=== PATIENT | male | born 1965 | race Caucasian/White ===

== ENCOUNTER → 2018-04-29 10:51 | Outpatient (CLI) | payer OTHER, SELFPAY ==
[2018-04-29 11:14] LABS: Add Manual Diff / Slide Review NO; Basophils Absolute Auto 0 /uL (0-100); Basophils Percent Auto 0.5 % (0-2); Eosinophils Absolute Auto 100 /uL (0-450); Eosinophils Percent Auto 1.4 % (2-4); Hematocrit 42.7 % (41-53); Hemoglobin 14.6 g/dL (13.5-17.5); Lymphocytes Absolute Auto 2600 /uL (1100-4500); Lymphocytes Percent Auto 38.5 % (25-40); Mean Corpuscular HGB Conc 34.2 % (30-36); Mean Corpuscular Hemoglobin 30.9 PG (26-34); Mean Corpuscular Volume 90.1 fL (80-100); Monocytes Absolute Auto 600 /uL (0-900); Monocytes Percent Auto 8.9 % (3-14); Neutrophils Absolute Auto 3400 /uL (1500-7000); Neutrophils Percent Auto 50.7 % (50-75); Platelet Count 286 X10^3/uL (150-400); Red Blood Cell Count 4.74 X10^6/uL (4.5-5.9); Red Cell Distribution Width 12.6 % (11.6-14.8); White Blood Cell Count 6.7 X10^3/uL (4.5-11.0)
[2018-04-29 11:34] LABS: Alanine Aminotransferase 67 IU/L (21-72); Albumin 4.6 g/dL (3.5-5.0); Albumin Globulin Ratio 1.6 (1.0-2.8); Alkaline Phosphatase 63 U/L (38-126); Aspartate Aminotransferase 59 IU/L (17-59); BUN Creatinine Ratio 10.9 (6-22); Bilirubin Total 0.9 mg/dL (0.2-1.3); Blood Urea Nitrogen 12 mg/dL (9-20); Calcium 9.3 mg/dL (8.4-10.2); Carbon Dioxide 29 mmol/L (22-32); Chloride 103 mmol/L (98-107); Cholesterol 137 mg/dL (140-199); Estimated Glomerular Filt Rate > 60.0 mL/min (>60); Globulin 2.9 g/dL (1.7-4.1); Glucose 97 mg/dL (70-100); HDL Cholesterol 47 mg/dL (40-60); HEMOLYSIS < 15 (0-50); LDL Cholesterol Calculated 68 mg/dL (<100); Potassium 4.6 mmol/L (3.4-5.1); Sodium 140 mmol/L (137-145); Total Protein 7.5 g/dL (6.3-8.2); Triglycerides 110 mg/dL (35-150)
[2018-04-29 13:23] LABS: Creatinine Urine Random 218.2 mg/dL
[2018-04-29 13:27] LABS: Microalbumi Creatinin Ratio Ur 12.8 ug/mg CR (<30); Microalbumin Urine Random 2.8 mg/dL (0-1.6); Thyroid Stimulating Hormone 1.19 uIU/mL (0.47-4.68)
== END ==
PROVIDERS: PCP Family Medicine; Visit Provider Family Medicine
DX: E78.5 Hyperlipidemia, unspecified (principal); I10 Essential (primary) hypertension; R89.9 Unspecified abnormal finding in specimens from other organs, systems and tissues; Z12.5 Encounter for screening for malignant neoplasm of prostate
CPT/HCPCS: 36415; 80053; 80061; 82043; 82570; 84153; 84443; 85025

== ENCOUNTER → 2019-04-29 09:49 | Outpatient (CLI) | payer OTHER, SELFPAY ==
--- NOTE | 2019-04-29 10:39 | DI.RAD.S_ITS ---
PROCEDURE: XR ELBOW LT MIN 3V INDICATIONS: Olecranon bursitis TECHNIQUE: 3 views of the elbow were acquired. COMPARISON: None. FINDINGS: Bones: No fractures or dislocations. No suspicious bony lesions. Note is made of a calcific structure longitudinally oriented from the triceps tendon insertion proximally for 1.2 cm, indicating calcific tendinitis in that area. Soft tissue swelling more superficially is also present consistent with olecranon bursitis. No recent trauma suspected. No effusion found. Soft tissues: No elbow joint effusion. No suspicious soft tissue calcifications. IMPRESSION: Presence tendon distal insertion calcific tendinitis with overlying prominent soft tissue swelling indicating likelihood of olecranon bursitis. Dictated by: Alcides Oliveira M.D. on 04/29/2019 at 12:14 Approved by: Alcides Oliveira M.D. on 04/29/2019 at 12:15
[2019-04-29 12:03] LABS: Hemoglobin 16.3 g/dL (13.5-17.5); Mean Corpuscular HGB Conc 34.7 % (30-36); Mean Corpuscular Hemoglobin 31.4 PG (26-34); Mean Corpuscular Volume 90.3 fL (80-100); Platelet Count 333 X10^3/uL (150-400); Red Blood Cell Count 5.21 X10^6/uL (4.5-5.9); Red Cell Distribution Width 12.7 % (11.6-14.8); White Blood Cell Count 8.1 X10^3/uL (4.5-11.0)
[2019-04-29 12:14] LABS: Alanine Aminotransferase 104 IU/L (<50); Albumin 5.1 g/dL (3.5-5.0); Albumin Globulin Ratio 1.5 (1.0-2.8); Alkaline Phosphatase 83 U/L (38-126); Aspartate Aminotransferase 60 IU/L (17-59); BUN Creatinine Ratio 15.8 (6-22); Bilirubin Total 0.9 mg/dL (0.2-1.3); Blood Urea Nitrogen 19 mg/dL (9-20); Calcium 9.4 mg/dL (8.4-10.2); Carbon Dioxide 27 mmol/L (22-32); Chloride 102 mmol/L (98-107); Cholesterol 190 mg/dL (140-199); Estimated Glomerular Filt Rate > 60.0 mL/min (>60); Globulin 3.5 g/dL (1.7-4.1); Glucose 102 mg/dL (70-100); HDL Cholesterol 37 mg/dL (40-60); HEMOLYSIS 24 (0-50); LDL Cholesterol Calculated 127 mg/dL (<100); Potassium 4.2 mmol/L (3.4-5.1); Sodium 140 mmol/L (137-145); Total Protein 8.6 g/dL (6.3-8.2); Triglycerides 131 mg/dL (35-150)
[2019-04-29 15:17] LABS: Creatinine Urine Random 196.7 mg/dL
[2019-04-29 15:20] LABS: Microalbumi Creatinin Ratio Ur 52.3 ug/mg CR (<30); Microalbumin Urine Random 10.3 mg/dL (0-1.6)
== END ==
PROVIDERS: PCP Family Medicine; Referring Provider Family Medicine; Visit Provider Family Medicine
DX: E78.5 Hyperlipidemia, unspecified (principal); F32.9 Major depressive disorder, single episode, unspecified; I10 Essential (primary) hypertension; M70.22 Olecranon bursitis, left elbow
CPT/HCPCS: 36415; 73080; 80053; 80061; 82043; 82570; 85027

== ENCOUNTER → 2019-06-14 08:32 | Outpatient (CLI) | payer OTHER, SELFPAY ==
[2019-06-14 09:02] LABS: Alanine Aminotransferase 87 IU/L (<50); Albumin 4.6 g/dL (3.5-5.0); Albumin Globulin Ratio 1.4 (1.0-2.8); Alkaline Phosphatase 74 U/L (38-126); Amylase 80 U/L (30-110); Aspartate Aminotransferase 44 IU/L (17-59); Bilirubin Total 0.6 mg/dL (0.2-1.3); Bilirubin Unconjugated 0.4 mg/dL (0.0-1.1); Globulin 3.2 g/dL (1.7-4.1); HEMOLYSIS < 15 (0-50); Lipase 103 U/L (23-300); Total Protein 7.8 g/dL (6.3-8.2)
== END ==
PROVIDERS: PCP Family Medicine; Referring Provider Family Medicine; Visit Provider Family Medicine
DX: R10.9 Unspecified abdominal pain (principal)
CPT/HCPCS: 36415; 80076; 82150; 83690

== ENCOUNTER → 2019-08-16 09:19 | Outpatient (CLI) | payer OTHER, SELFPAY ==
[2019-08-16 10:18] LABS: Hematocrit 43.1 % (41-53); Hemoglobin 14.9 g/dL (13.5-17.5); Mean Corpuscular HGB Conc 34.5 % (30-36); Mean Corpuscular Hemoglobin 30.7 PG (26-34); Mean Corpuscular Volume 89.2 fL (80-100); Platelet Count 349 X10^3/uL (150-400); Red Blood Cell Count 4.83 X10^6/uL (4.5-5.9); Red Cell Distribution Width 12.5 % (11.6-14.8); White Blood Cell Count 6.7 X10^3/uL (4.5-11.0)
[2019-08-16 10:47] LABS: Alanine Aminotransferase 65 IU/L (<50); Albumin 4.5 g/dL (3.5-5.0); Albumin Globulin Ratio 1.5 (1.0-2.8); Alkaline Phosphatase 73 U/L (38-126); Aspartate Aminotransferase 40 IU/L (17-59); BUN Creatinine Ratio 15.4 (6-22); Bilirubin Total 0.6 mg/dL (0.2-1.3); Blood Urea Nitrogen 18 mg/dL (9-20); Calcium 9.5 mg/dL (8.4-10.2); Carbon Dioxide 27 mmol/L (22-32); Chloride 102 mmol/L (98-107); Cholesterol 162 mg/dL (140-199); Estimated Glomerular Filt Rate > 60.0 mL/min (>60); Globulin 3.1 g/dL (1.7-4.1); Glucose 111 mg/dL (70-100); HDL Cholesterol 33 mg/dL (40-60); HEMOLYSIS < 15 (0-50); LDL Cholesterol Calculated 83 mg/dL (<100); Potassium 4.6 mmol/L (3.4-5.1); Sodium 138 mmol/L (137-145); Total Protein 7.6 g/dL (6.3-8.2); Triglycerides 232 mg/dL (35-150); Uric Acid 7.5 mg/dL (3.5-8.5)
== END ==
PROVIDERS: PCP Family Medicine; Referring Provider Family Medicine; Visit Provider Family Medicine
DX: E78.5 Hyperlipidemia, unspecified (principal); F32.9 Major depressive disorder, single episode, unspecified; I10 Essential (primary) hypertension; M70.22 Olecranon bursitis, left elbow
CPT/HCPCS: 36415; 80053; 80061; 84550; 85027

== ENCOUNTER → 2019-12-26 11:16 | Outpatient (CLI) | payer OTHER, SELFPAY ==
--- NOTE | 2019-12-26 11:17 | DI.CT.S_ITS ---
PROCEDURE: CT ABDOMEN PELVIS WO/W CON INDICATIONS: Right flank pain. Report prior appendectomy 20 years ago. TECHNIQUE: After the administration of oral contrast, 5 mm thick sections acquired from the diaphragms to the iliac crests. After the administration of intravenous contrast, 5 mm thick sections acquired from the diaphragms to the symphysis. 5 mm thick coronal and sagittal reformats were acquired. For radiation dose reduction, the following was used: automated exposure control, adjustment of mA and/or kV according to patient size. COMPARISON: None. FINDINGS: Image quality: Excellent. ABDOMEN: Lung bases: Lung bases are clear. Heart size is normal. Solid organs: Liver is normal in size and enhancement but on precontrast imaging appears relatively radiolucent compared to the spleen in a pattern suggestive of generalized hepatic steatosis, moderate in severity.. Gallbladder appear normal. Biliary system is non-dilated. Pancreas enhances normally. Spleen is normal in size and enhancement. No adrenal nodules. Both kidneys are normal in size. No hydronephrosis or nephrolithiasis. Bowel and peritoneum: Stomach, small and large bowel loops are normal in caliber and wall thickness. No free fluid or air. Nodes and vessels: No retroperitoneal or mesenteric adenopathy by size criteria. Aorta and inferior vena are normal in caliber. Miscellaneous: No ventral hernias. PELVIS: Genitourinary: Bladder wall thickness is normal. Miscellaneous: No inguinal hernias or adenopathy. Bones: No suspicious bony lesions. No vertebral body compression fractures. IMPRESSION: A urinary tract stone is not found. No abnormality is seen along the right flank area in region of current clinical concern. No underlying infection or neoplasm is suspected. No operative complication from reported distant past appendectomy is suspected. Moderate fatty infiltration involving the liver appears present, a potential etiology of right-sided pain. Please correlate clinically for etiology of hepatic steatosis. Dictated by: Alcides Oliveira M.D. on 12/26/2019 at 13:07 Approved by: Alcides Oliveira M.D. on 12/26/2019 at 13:11
== END ==
PROVIDERS: PCP Family Medicine; Referring Provider Family Medicine; Visit Provider Family Medicine
DX: R10.10 Upper abdominal pain, unspecified (principal)
CPT/HCPCS: 74178

== ENCOUNTER → 2020-02-10 10:04 | Outpatient (CLI) | payer OTHER, SELFPAY ==
[2020-02-10 12:25] LABS: Add Manual Diff / Slide Review NO; Basophils Absolute Auto 0 /uL (0-100); Basophils Percent Auto 0.4 % (0-2); Eosinophils Absolute Auto 100 /uL (0-450); Hematocrit 43.9 % (41-53); Hemoglobin 14.8 g/dL (13.5-17.5); Lymphocytes Absolute Auto 2900 /uL (1100-4500); Lymphocytes Percent Auto 45.4 % (25-40); Mean Corpuscular HGB Conc 33.8 % (30-36); Mean Corpuscular Volume 88.7 fL (80-100); Monocytes Absolute Auto 300 /uL (0-900); Monocytes Percent Auto 5.3 % (3-14); Neutrophils Absolute Auto 3100 /uL (1500-7000); Neutrophils Percent Auto 47.9 % (50-75); Platelet Count 332 X10^3/uL (150-400); Red Blood Cell Count 4.95 X10^6/uL (4.5-5.9); Red Cell Distribution Width 13.1 % (11.6-14.8); White Blood Cell Count 6.4 X10^3/uL (4.5-11.0)
[2020-02-10 12:53] LABS: Alanine Aminotransferase 73 IU/L (<50); Albumin 4.4 g/dL (3.5-5.0); Albumin Globulin Ratio 1.6 (1.0-2.8); Alkaline Phosphatase 67 U/L (38-126); Aspartate Aminotransferase 35 IU/L (17-59); Bilirubin Total 0.6 mg/dL (0.2-1.3); Blood Urea Nitrogen 14 mg/dL (9-20); Calcium 9.3 mg/dL (8.4-10.2); Carbon Dioxide 25 mmol/L (22-32); Chloride 105 mmol/L (98-107); Cholesterol 145 mg/dL (140-199); Estimated Glomerular Filt Rate > 60.0 mL/min (>60); Globulin 2.7 g/dL (1.7-4.1); Glucose 99 mg/dL (70-100); HDL Cholesterol 39 mg/dL (40-60); HEMOLYSIS < 15 (0-50); LDL Cholesterol Calculated 73 mg/dL (<100); Potassium 4.8 mmol/L (3.4-5.1); Sodium 139 mmol/L (137-145); Total Protein 7.1 g/dL (6.3-8.2); Triglycerides 166 mg/dL (35-150)
[2020-02-10 13:11] LABS: Prostate Specific Antigen Scrn 1.12 ng/mL (0.1-4.0)
== END ==
PROVIDERS: PCP Family Medicine; Referring Provider Family Medicine; Visit Provider Family Medicine
DX: E78.5 Hyperlipidemia, unspecified (principal); I10 Essential (primary) hypertension; R10.10 Upper abdominal pain, unspecified; Z12.5 Encounter for screening for malignant neoplasm of prostate
CPT/HCPCS: 36415; 80053; 80061; 85025; G0103

== ENCOUNTER → 2020-03-23 15:12 | Outpatient (CLI) | payer OTHER, SELFPAY ==
[2020-03-23 15:48] LABS: Add Manual Diff / Slide Review NO; Basophils Absolute Auto 0 /uL (0-100); Basophils Percent Auto 0.4 % (0-2); Eosinophils Absolute Auto 0 /uL (0-450); Eosinophils Percent Auto 0.1 % (2-4); Hematocrit 45.4 % (41-53); Hemoglobin 15.5 g/dL (13.5-17.5); Lymphocytes Absolute Auto 2100 /uL (1100-4500); Lymphocytes Percent Auto 27.3 % (25-40); Mean Corpuscular HGB Conc 34.2 % (30-36); Mean Corpuscular Hemoglobin 30.3 PG (26-34); Mean Corpuscular Volume 88.8 fL (80-100); Monocytes Absolute Auto 400 /uL (0-900); Monocytes Percent Auto 5.7 % (3-14); Neutrophils Absolute Auto 5200 /uL (1500-7000); Neutrophils Percent Auto 66.5 % (50-75); Platelet Count 313 X10^3/uL (150-400); Red Blood Cell Count 5.11 X10^6/uL (4.5-5.9); Red Cell Distribution Width 13.1 % (11.6-14.8); White Blood Cell Count 7.8 X10^3/uL (4.5-11.0)
[2020-03-23 16:06] LABS: Alanine Aminotransferase 81 IU/L (<50); Albumin 4.6 g/dL (3.5-5.0); Albumin Globulin Ratio 1.4 (1.0-2.8); Alkaline Phosphatase 65 U/L (38-126); Aspartate Aminotransferase 45 IU/L (17-59); BUN Creatinine Ratio 13.6 (6-22); Bilirubin Total 0.5 mg/dL (0.2-1.3); Blood Urea Nitrogen 14 mg/dL (9-20); Calcium 9.5 mg/dL (8.4-10.2); Carbon Dioxide 31 mmol/L (22-32); Chloride 104 mmol/L (98-107); Estimated Glomerular Filt Rate > 60.0 mL/min (>60); Globulin 3.2 g/dL (1.7-4.1); Glucose 121 mg/dL (70-100); HEMOLYSIS < 15 (0-50); Potassium 4.4 mmol/L (3.4-5.1); Sodium 139 mmol/L (137-145); Total Protein 7.8 g/dL (6.3-8.2)
== END ==
PROVIDERS: Referring Provider Nurse Practitioner Family; Visit Provider Nurse Practitioner Family
DX: R42 Dizziness and giddiness (principal)
CPT/HCPCS: 36415; 80053; 83735; 85025

== ENCOUNTER 2020-03-24 09:33 | Emergency (ER) | payer OTHER, SELFPAY ==
--- NOTE | 2020-03-24 09:40 | ED.GENADULT ---
HPI - General Adult General Chief complaint: Dizziness Stated complaint: extreme nausea/dizziness x1 day Time Seen by Provider: 03/24/20 09:35 Source: patient Mode of arrival: Ambulatory Limitations: no limitations History of Present Illness HPI narrative: 55-year-old male who was seen in the walk-in clinic yesterday for dizziness. Had labs performed. According to the note had a relatively normal neurologic exam. His symptoms were vertiginous. He declined medications. Was told to take Dramamine at home for his symptoms however he reported that things seem to be improving last evening. He woke up this morning feeling worse than what he did yesterday. He states that he feels better when he is lying back with his eyes closed. Any movement causes the spinning sensation. He does have a left-sided headache. No vision changes. No chest pain or shortness of breath. Has not tried anything for symptoms prior to arrival. Related Data Previous Rx's Medication Instructions Recorded amlodipine 5 mg tablet 10 mg PO DAILY #180 tab 02/11/20 atorvastatin 10 mg tablet 10 mg PO HS #90 tab 02/11/20 lisinopril 20 mg tablet 40 mg PO BID #360 tab 02/11/20 meclizine 25 mg PO TID PRN #20 tab 03/24/20 ondansetron 4 mg PO Q6H PRN #14 tab 03/24/20 Allergies Allergy/AdvReac Type Severity Reaction Status Date / Time Xspselw-Dzs-Gtc Reductase AdvReac Mild muscle Verified 02/11/20 15:01 Inhibitor aches [BPSKVIM-AMH-HOL REDUCTASE INHIBITOR] Review of Systems Constitutional Constitutional: Denies chills, Denies fatigue, Denies fever(s), Reports headache(s) and Denies weakness Eyes Eyes: Denies change in vision ENT Ears, Nose, Mouth, and Throat: Reports vertigo, Reports dizziness, Reports headache(s), Denies sinus pain, Denies sinus pressure and Denies sore throat Cardiovascular Cardiovascular: Denies chest pain, Denies syncope and Denies dyspnea Respiratory Respiratory: Denies dyspnea Gastrointestinal Gastrointestinal: Denies abdominal pain, Reports nausea and Denies vomiting Genitourinary Genitourinary: Denies dysuria Genitourinary: Denies dysuria Musculoskeletal Musculoskeletal: Denies arthralgias, Denies myalgias and Denies tingling Integumentary/Breasts Skin/Breast: Denies rash Neurologic Neurologic: Denies abnormal speech, Reports vertigo, Reports dizziness, Denies syncope, Reports headache(s), Denies tingling and Denies weakness Psychiatric Psychiatric: Denies anxiety Endocrine Endocrine: Denies fatigue Hematologic/Lymphatic On Anticoagulants: No Allergic/Immunologic Allergic/Immunologic: Denies urticaria Patient History Medical History Alcohol abuse Depression (09/19/10) Dizziness Essential hypertension (02/24/16) Eustachian tube dysfunction Hyperlipidemia (09/19/10) Social History Smoking Status: Never smoker Smoking Status: Never smoker Exam Initial Vital Signs Initial Vital Signs: Vital Signs Temperature 97.7 F 03/24/20 09:42 Pulse Rate 67 03/24/20 09:42 Respiratory Rate 18 03/24/20 09:42 Blood Pressure 155/91 H 03/24/20 09:42 Pulse Oximetry 99 03/24/20 09:42 Const General: cooperative and comfortable Limitations: mental status not altered HENMT Head: normal to inspection and normocephalic Nose: external nose normal Resp Effort & Inspection: normal respiratory effort Auscultation: clear to auscultation bilaterally Cardio Rate: regular rate Rhythm: regular rhythm GI Inspection: non-distended Palpation: soft and No tender Skin Lesions: no lesions Rashes: no rashes Neuro General: patient alert, patient awake and patient oriented x3 Cognition: normal cognition Speech: speech normal Motor: muscle tone normal throughout Sensory Exam: no sensory deficits noted Other: Patient with a positive [place]-Hallpike to the right with nystagmus. We were also able to reproduce the symptoms to the left however not as intense as to the right. Extrem General: normal to inspection and capillary refill normal Psych Appearance: grossly normal and well kempt Scores GCS Zofia coma scale eye opening: Spontaneous Zofia coma scale verbal response: Orientated [place] coma scale motor response: Obey commands Zofia coma scale total score: 15 Course Orders Ordered: ED Orders 03/24/20 09:37 EKG-12 Lead Stat 03/24/20 09:41 Complete Blood Count AUTO DIFF Stat 03/24/20 09:42 Comprehensive Metabolic Panel Stat Ethanol (ETOH) Stat Lipase Stat 03/24/20 09:46 CT head/brain wo con Stat Discontinued Medications Diazepam (Diazepam 5 Mg Tablet) 5 mg PO NOW ONE Stop: 03/24/20 09:47 Last Admin: 03/24/20 09:59 Dose: 5 mg Documented by: Sodium Chloride (Normal Saline 0.9%) 1,000 mls @ 1,000 mls/hr IV BOLUS ONE Stop: 03/24/20 10:40 Last Admin: 03/24/20 09:59 Dose: 1,000 mls/hr Documented by: Thiamine HCl (Thiamine 200 Mg/2 Ml Vial) 100 mg IM NOW ONE Stop: 03/24/20 09:42 Thiamine HCl (Thiamine 200 Mg/2 Ml Vial) 100 mg IV NOW ONE Stop: 03/24/20 09:54 Last Admin: 03/24/20 09:58 Dose: 100 mg Documented by: Vital Signs Vital signs: Vital Signs - 8 hr 03/24/20 09:42 03/24/20 10:13 03/24/20 10:15 Temperature 97.7 F Pulse Rate 67 58 L 58 L Respiratory Rate 18 18 12 Blood Pressure 155/91 H 122/76 Pulse Oximetry 99 99 03/24/20 10:30 03/24/20 10:45 03/24/20 11:00 Temperature Pulse Rate 62 62 62 Respiratory Rate 15 12 16 Blood Pressure 118/72 117/68 119/72 Pulse Oximetry Medical Decision Making Lab Data Lab results reviewed: Yes I reviewed the patient's lab results. Result diagrams: 03/24/20 09:51 03/24/20 09:51 Labs: Lab Results 03/24/20 03/24/20 Range/Units 09:51 09:51 WBC 8.9 (4.5-11.0) X10^3/uL RBC 5.14 (4.5-5.9) X10^6/uL Hgb 15.6 (13.5-17.5) g/dL Hct 45.8 (41-53) % MCV 89.2 (80-100) fL MCH 30.4 (26-34) PG MCHC 34.0 (30-36) % RDW 13.0 (11.6-14.8) % Plt Count 330 (150-400) X10^3/uL Neut % (Auto) 61.6 (50-75) % Lymph % (Auto) 31.4 (25-40) % Martin % (Auto) 6.1 (3-14) % Eos % (Auto) 0.4 L (2-4) % Baso % (Auto) 0.5 (0-2) % Neut # (Auto) 5500 (8694-3447) /uL Lymph # (Auto) 2800 (4003-8905) /uL Martin # (Auto) 500 (0-900) /uL Eos # (Auto) 0 (0-450) /uL Baso # (Auto) 0 (0-100) /uL Sodium 138 (137-145) mmol/L Potassium 4.5 (3.4-5.1) mmol/L Chloride 104 (98-107) mmol/L Carbon Dioxide 27 (22-32) mmol/L BUN 14 (9-20) mg/dL Creatinine 0.99 (0.66-1.25) mg/dL Estimated GFR > 60.0 (>60) mL/min BUN/Creatinine Ratio 14.1 (6-22) Glucose 141 H (70-100) mg/dL Calcium 9.2 (8.4-10.2) mg/dL Total Bilirubin 0.6 (0.2-1.3) mg/dL AST 57 (17-59) IU/L ALT 86 H (<50) IU/L Alkaline Phosphatase 73 (38-126) U/L Total Protein 7.7 (6.3-8.2) g/dL Albumin 4.6 (3.5-5.0) g/dL Globulin 3.1 (1.7-4.1) g/dL Albumin/Globulin Ratio 1.5 (1.0-2.8) Lipase 83 (23-300) U/L Ethyl Alcohol < 10 ( - 10) mg/dL Imaging Data CT scan - head: Radiologist's Impression: [address] [id number] Scan ReportSigned Patient: Scar Patel LMR#: [id number]: 1965Acct:[id number]/Sex: 55 / MDate of Service: 03/24/20Loc: EDAccession Number: [id number] Procedure: CT head/brain wo con Ordering Provider: Ryan Knowles D.O. PROCEDURE: CT HEAD/BRAIN WO CON INDICATIONS: vertigo and left sided headache/fullness TECHNIQUE: Noncontrast 4.5 mm thick angled axial sections acquired from the foramen magnum to the vertex, with coronal and sagittal reformats. For radiation dose reduction, the following was used: automated exposure control, adjustment of mA and/or kV according to patient size. COMPARISON: [facility], , CT HEAD W/O CONTRAST, 04/25/2002, 9:36. FINDINGS: Image quality: Excellent. CSF spaces: Basal cisterns are patent. No extra-axial fluid collections. The ventricles are symmetric in size and shape. Brain: No intracranial bleeds or masses. There is cerebral volume loss for age, with resultant ventricular and sulcal prominence. There are periventricular and deep white matter chronic small vessel ischemic changes. There is intracranial internal carotid artery atherosclerosis. Skull and face: Calvarium and visualized facial bones appear intact, without suspicious lesions. Sinuses: Visualized sinuses and mastoids are clear. IMPRESSION: No acute intracranial disease process. Dictated by: Fawn Elam MD, PhD on 03/24/2020 at 9:09 Approved by: Fawn Elam MD, PhD on 03/24/2020 at 9:12 ECG Data Attestation: I personally reviewed and interpreted this ECG as follows: Prior ECG tracings: not available for review Interpretation: Sinus rhythm Ventricular rate is 63 Normal axis Normal QRS Normal QTC No ST T wave changes MDM Narrative Medical decision making narrative: Patient did have a positive [place]-Hallpike maneuver to the right. His head CT is unremarkable. EKG is unremarkable. Labs are unremarkable. He was given thiamine secondary to his history of alcohol abuse however I do have low suspicion for Wernicke after my complete exam. He has some improvement with Valium. I do suspect peripheral vertigo. Discussed this with him and his . Medicines were transmitted to the pharmacy of his choice. He was given return precautions and follow-up instructions. He expressed understanding and agreement. Discharge Plan Departure Patient Disposition: Home Clinical Impression: Vertigo Instructions: DI for Vertigo Activity Restrictions/Additional Instructions: Recommend that you use the [facility] many of her like we discussed. Medications were electronically transmitted to the pharmacy of your choice. I do recommend you contact your primary doctor for follow-up. Return emergency department for any new or worsening symptoms Prescriptions: New meclizine 25 mg tablet 25 mg PO TID PRN (Reason: motion sickness) Qty: 20 RF: 0 ondansetron 4 mg tablet,disintegrating 4 mg PO Q6H PRN (Reason: nausea and vomiting) Qty: 14 RF: 0 No Action amlodipine 5 mg tablet 10 mg PO DAILY Qty: 180 RF: 3 atorvastatin [Lipitor] 10 mg tablet 10 mg PO HS Qty: 90 RF: 3 lisinopril 20 mg tablet 40 mg PO BID Qty: 360 RF: 3
[2020-03-24 09:42] VITALS: BP 155/91; PULSE 67; RESP 18; TEMP 36.5; O2SAT 99; BMI 35.9
--- NOTE | 2020-03-24 09:57 | DI.CT.S_ITS ---
PROCEDURE: CT HEAD/BRAIN WO CON INDICATIONS: vertigo and left sided headache/fullness TECHNIQUE: Noncontrast 4.5 mm thick angled axial sections acquired from the foramen magnum to the vertex, with coronal and sagittal reformats. For radiation dose reduction, the following was used: automated exposure control, adjustment of mA and/or kV according to patient size. COMPARISON: [facility], , CT HEAD W/O CONTRAST, 04/25/2002, 9:36. FINDINGS: Image quality: Excellent. CSF spaces: Basal cisterns are patent. No extra-axial fluid collections. The ventricles are symmetric in size and shape. Brain: No intracranial bleeds or masses. There is cerebral volume loss for age, with resultant ventricular and sulcal prominence. There are periventricular and deep white matter chronic small vessel ischemic changes. There is intracranial internal carotid artery atherosclerosis. Skull and face: Calvarium and visualized facial bones appear intact, without suspicious lesions. Sinuses: Visualized sinuses and mastoids are clear. IMPRESSION: No acute intracranial disease process. Dictated by: Fawn Elam MD, PhD on 03/24/2020 at 9:09 Approved by: Fawn Elam MD, PhD on 03/24/2020 at 9:12
[2020-03-24] MEDS: THIAMINE 200 MG/2 ML VIAL 100 MG IV (09:58)
[2020-03-24 09:59] LABS: Add Manual Diff / Slide Review NO; Basophils Absolute Auto 0 /uL (0-100); Basophils Percent Auto 0.5 % (0-2); Eosinophils Absolute Auto 0 /uL (0-450); Eosinophils Percent Auto 0.4 % (2-4); Hematocrit 45.8 % (41-53); Hemoglobin 15.6 g/dL (13.5-17.5); Lymphocytes Absolute Auto 2800 /uL (1100-4500); Lymphocytes Percent Auto 31.4 % (25-40); Mean Corpuscular Hemoglobin 30.4 PG (26-34); Mean Corpuscular Volume 89.2 fL (80-100); Monocytes Absolute Auto 500 /uL (0-900); Monocytes Percent Auto 6.1 % (3-14); Neutrophils Absolute Auto 5500 /uL (1500-7000); Neutrophils Percent Auto 61.6 % (50-75); Platelet Count 330 X10^3/uL (150-400); Red Blood Cell Count 5.14 X10^6/uL (4.5-5.9); White Blood Cell Count 8.9 X10^3/uL (4.5-11.0)
[2020-03-24] MEDS: SODIUM CHLORIDE 0.9% 1,000 ML 1000 ML IV (09:59)
[2020-03-24] MEDS: diazePAM 5 MG TABLET PO (09:59)
[2020-03-24 10:13] VITALS: PULSE 58; RESP 18; O2SAT 99
[2020-03-24 10:15] VITALS: BP 122/76; PULSE 58; RESP 12
[2020-03-24 10:15] LABS: Alanine Aminotransferase 86 IU/L (<50); Albumin 4.6 g/dL (3.5-5.0); Albumin Globulin Ratio 1.5 (1.0-2.8); Alkaline Phosphatase 73 U/L (38-126); Aspartate Aminotransferase 57 IU/L (17-59); BUN Creatinine Ratio 14.1 (6-22); Bilirubin Total 0.6 mg/dL (0.2-1.3); Blood Urea Nitrogen 14 mg/dL (9-20); Calcium 9.2 mg/dL (8.4-10.2); Carbon Dioxide 27 mmol/L (22-32); Chloride 104 mmol/L (98-107); Estimated Glomerular Filt Rate > 60.0 mL/min (>60); Ethanol (ETOH) < 10 mg/dL; Globulin 3.1 g/dL (1.7-4.1); Glucose 141 mg/dL (70-100); HEMOLYSIS < 15 (0-50); Lipase 83 U/L (23-300); Potassium 4.5 mmol/L (3.4-5.1); Sodium 138 mmol/L (137-145); Total Protein 7.7 g/dL (6.3-8.2)
[2020-03-24 10:30] VITALS: BP 118/72; PULSE 62; RESP 15
[2020-03-24 10:45] VITALS: BP 117/68; PULSE 62; RESP 12
[2020-03-24 11:00] VITALS: BP 119/72; PULSE 62; RESP 16
== END 2020-03-24 11:19 | disposition home or self-care (01) ==
PROVIDERS: Emergency Provider Emergency Medicine
DX: R42 Dizziness and giddiness (principal); R51.9 Headache, unspecified; E78.5 Hyperlipidemia, unspecified; R11.0 Nausea
CPT/HCPCS: 36415; 70450; 80053; 80320; 83690; 85025; 93005; 93010; 96360; 99284

== ENCOUNTER → 2020-04-07 08:34 | Outpatient (CLI) | payer OTHER, SELFPAY ==
--- NOTE | 2020-04-07 08:35 | DI.MRI.S_ITS ---
PROCEDURE: MR BRAIN (IAC) WWO CON INDICATIONS: Vertigo and left-sided tinnitus TECHNIQUE: Noncontrast sagittal T1 spin echo, axial FLAIR, axial gradient echo, axial diffusion and ADC through the brain. Axial thin-slice 3D CISS, coronal TruFISP, axial T1 spin echo with fat saturation through the internal auditory canals. After the administration of contrast, thin slice axial and coronal T1 spin echo with fat saturation through the internal auditory canals, and axial T1 spin echo with fat saturation through the brain. COMPARISON: [facility], RG, CT HEAD W/O CONTRAST, 04/25/2002, 9:36. [facility], CT, CT HEAD/BRAIN WO CON, 03/24/2020, 9:50. FINDINGS: Image quality: Excellent. Cerebellopontine angles: No cerebellopontine angle masses. Inner ear structures appear normally formed. No suspicious enhancement in the internal auditory canal or along the course of the 7th cranial nerve. CSF spaces: Ventricles are normal in size and shape. No extra-axial fluid collections. Basal cisterns are patent. Brain: No intracranial bleeds or mass effects. [place]-white matter interface is intact. No abnormal intracranial enhancement. Diffusion weighted images demonstrate no acute ischemic insults. Brainstem appears normal. Normal intravascular flow voids are present. Skull and face: Calvarial marrow signal is normal. Orbits appear normal. Sinuses: Sinuses and mastoids are clear. IMPRESSION: No significant abnormality is seen. Specifically, no masses or abnormal enhancement are seen within the cerebellopontine angle cisterns or within the internal auditory canals. Dictated by: Peter Nguyen M.D. on 04/07/2020 at 8:30 Approved by: Peter Nguyen M.D. on 04/07/2020 at 8:44
== END ==
PROVIDERS: PCP Family Medicine; Referring Provider Family Medicine; Visit Provider Family Medicine
DX: H93.12 Tinnitus, left ear (principal); R42 Dizziness and giddiness
CPT/HCPCS: 70553

== ENCOUNTER → 2020-06-15 09:42 | Outpatient (CLI) | payer OTHER, SELFPAY ==
[2020-06-15 10:23] LABS: COVID19 -Nasal RAPID Negative (Negative)
== END ==
PROVIDERS: PCP Family Medicine; Visit Provider Student in an Organized Health Care Education/Training Program
DX: Z20.822 Contact with and (suspected) exposure to COVID-19 (principal)
CPT/HCPCS: 87635

== ENCOUNTER → 2022-05-15 10:19 | Outpatient (CLI) | payer BC, SELFPAY ==
[2022-05-15 10:39] LABS: Add Manual Diff / Slide Review NO; Basophils Absolute Auto 0 /uL (0-100); Basophils Percent Auto 0.8 % (0-2); Eosinophils Absolute Auto 100 /uL (0-450); Eosinophils Percent Auto 1.3 % (2-4); Hematocrit 46.4 % (41-53); Hemoglobin 15.7 g/dL (13.5-17.5); Lymphocytes Absolute Auto 3000 /uL (1100-4500); Lymphocytes Percent Auto 55.1 % (25-40); Mean Corpuscular HGB Conc 33.9 % (30-36); Mean Corpuscular Hemoglobin 30.8 PG (26-34); Mean Corpuscular Volume 90.8 fL (80-100); Monocytes Absolute Auto 300 /uL (0-900); Monocytes Percent Auto 5.7 % (3-14); Neutrophils Absolute Auto 2000 /uL (1500-7000); Neutrophils Percent Auto 37.1 % (50-75); Platelet Count 288 X10^3/uL (150-400); Red Blood Cell Count 5.11 X10^6/uL (4.5-5.9); Red Cell Distribution Width 12.9 % (11.6-14.8); White Blood Cell Count 5.4 X10^3/uL (4.5-11.0)
[2022-05-15 11:07] LABS: HEMOLYSIS < 15 (0-50)
[2022-05-15 11:15] LABS: Alanine Aminotransferase 76 IU/L (<50); Albumin 4.4 g/dL (3.5-5.0); Albumin Globulin Ratio 1.3 (1.0-2.8); Alkaline Phosphatase 69 U/L (38-126); Aspartate Aminotransferase 48 IU/L (17-59); BUN Creatinine Ratio 11.6 (6-22); Bilirubin Total 0.7 mg/dL (0.2-1.3); Blood Urea Nitrogen 13 mg/dL (9-20); Calcium 8.8 mg/dL (8.4-10.2); Carbon Dioxide 26 mmol/L (22-32); Chloride 104 mmol/L (98-107); Cholesterol 168 mg/dL (140-199); Estimated Glomerular Filt Rate > 60 mL/min (>60); Globulin 3.4 g/dL (1.7-4.1); Glucose 112 mg/dL (70-100); HDL Cholesterol 40 mg/dL (40-60); LDL Cholesterol Calculated 95 mg/dL (<100); Potassium 4.5 mmol/L (3.4-5.1); Sodium 137 mmol/L (137-145); Total Protein 7.8 g/dL (6.3-8.2); Triglycerides 163 mg/dL (35-150)
[2022-05-15 11:47] LABS: TSH w/ Reflex to FT4 1.24 uIU/mL (0.47-4.68)
[2022-05-19 11:10] LABS: Prostate Specific Antigen Scrn 2.12 ng/mL (0.1-4.0)
== END ==
PROVIDERS: PCP Family Medicine; Referring Provider Family Medicine; Visit Provider Family Medicine
DX: E78.5 Hyperlipidemia, unspecified (principal); F32.9 Major depressive disorder, single episode, unspecified; I10 Essential (primary) hypertension; R73.9 Hyperglycemia, unspecified; R79.89 Other specified abnormal findings of blood chemistry; Z12.5 Encounter for screening for malignant neoplasm of prostate
CPT/HCPCS: 36415; 80053; 80061; 83036; 84443; 85025; G0103

== ENCOUNTER 2022-07-25 08:35 | Day surgery (SDC) | payer BC, SELFPAY ==
[2022-07-25 08:52] VITALS: BMI 35.9
[2022-07-25 09:13] VITALS: BP 125/81; PULSE 58; RESP 19; TEMP 36.7; O2SAT 98
--- NOTE | 2022-07-25 09:32 | PM.HP.1 ---
History of Present Illness History of Present Illness Date Patient Seen: 07/25/22 Time Patient Seen: 09:32 Chief complaint: SDC Narrative: 57-year-old man here for colorectal screening by colonoscopy. Last colonoscopy 11-12 years ago normal. No family history of colon cancer. No blood per rectum or unintentional weight loss. Endorses occasional altered bowel function and rectal pruritus. [facility] Medical History Alcohol abuse Depression Dizziness Essential hypertension (02/24/16) Eustachian tube dysfunction Hyperlipidemia (09/19/10) Left-sided tinnitus Social History household members: spouse Smoking Status: Never smoker alcohol intake: current Meds Home Medications and Allergies Home Medications Medication Instructions Recorded Confirmed Type mirtazapine 15 mg tablet 30 mg PO BEDTIME #180 tabs 12/08/21 07/25/22 Rx niacin 500 mg tablet 1,000 mg PO DAILY 01/13/22 07/25/22 History atorvastatin 10 mg tablet (Lipitor) 10 mg PO HS #90 tabs 06/08/22 07/25/22 Rx lisinopril 20 mg tablet 40 mg PO BID #360 tabs 06/08/22 07/25/22 Rx amlodipine 5 mg tablet 20 mg PO DAILY 07/25/22 07/25/22 History bupropion HCl 150 mg tablet,12 hr 150 mg PO 2XD 07/25/22 07/25/22 History sustained-release Allergies Allergy/AdvReac Type Severity Reaction Status Date / Time No Known Drug Allergies Allergy Verified 07/25/22 08:47 Exam Vital Signs (past 8 hours): - 07/25/22 09:13 Temperature 98.1 F Pulse Rate 58 L Respiratory Rate 19 Blood Pressure 125/81 Pulse Oximetry 98 Oxygen Delivery Method Room Air Oxygen Delivery Method Room Air Narrative Exam Narrative: General adult man alert oriented no acute distress Abdomen soft nontender nondistended Assessment & Plan Assessment & Plan narrative: The patient requires colorectal screening and colonoscopy is recommended. Technical details were discussed. Risks, benefits, alternatives explained. Risks including but not limited to myocardial infarction, aspiration, bleeding, pain, missed lesion, incomplete examination, need for further radiographic studies, colonic perforation, and need for major abdominal surgery were discussed. All questions were answered to their satisfaction, and they are in agreement with this plan.
[2022-07-25 09:59] VITALS: BP 116/85; PULSE 64; RESP 18; TEMP 36.1; O2SAT 96
--- NOTE | 2022-07-25 10:03 | PM.OP.COLON ---
Operative Date/Time/Diagnoses Date of procedure: 07/25/22 Time of procedure: 10:03 Pre-op diagnosis: Colorectal screening Post-op diagnosis: same Procedure & Clinicians Study performed: Colonoscopy Same procedure as scheduled: Yes Indications: 57-year-old man here for colorectal screening by colonoscopy Surgeon: Pepe Luciano Procedure Notes Procedure in detail: The history and physical was performed/updated and the patient is ASA class is 2. The procedure was discussed in detail with the patient. Potential risks complications including infection, bleeding, missed diagnosis, perforation, need for surgery, and were explained. Their questions were answered and informed consent was obtained. Patient was brought to the procedure room and placed standard monitoring equipment. The patient's vital signs were monitored continuously throughout the entire procedure. Prior to starting time-out was performed. The patient was placed in the left lateral recumbent position. Procedural sedation was administered by anesthesia. Examination began with a thorough inspection of the perianal area there was no evidence of fissures, fistulae, external hemorrhoids or cutaneous malignancy. The colonoscopy scope was then placed into the anal canal and was advanced to the cecum, which was identified by the ileocecal valve, and the confluence of the taenia. The scope was then slowly withdrawn examining colon thoroughly in all directions, irrigating it of any residual stool. No masses polyps or inflammation. Grade 2 internal hemorrhoids on retroflexion within the rectum. The patient tolerated the procedure well. They will be discharged once criteria are met. The prep was of good/excellent quality. The withdrawl time was 7 minutes. Specimen(s): none sent Impression: Normal colonoscopy Post-procedure Recommendations: Colonoscopy in 10 years and High fiber diet Disposition: same day surgery
[2022-07-25 10:05] VITALS: BP 115/86; PULSE 64; RESP 14; O2SAT 96
[2022-07-25 10:10] VITALS: BP 119/87; PULSE 60; RESP 18; O2SAT 97
[2022-07-25 10:15] VITALS: BP 119/87; PULSE 59; RESP 16; O2SAT 97
[2022-07-25] MEDS: LACTATED RINGERS 1,000 ML 200 ML IV (10:28)
== END 2022-07-25 10:30 | disposition home or self-care (01) ==
PROVIDERS: PCP Family Medicine; Referring Provider Surgery; Visit Provider Surgery
PROC: 0DJD8ZZ Inspection of Lower Intestinal Tract, Via Natural or Artificial Opening Endoscopic (ICD-10-PCS; CPT 45378; principal; 2022-07-25 09:30)
DX: Z12.11 Encounter for screening for malignant neoplasm of colon (principal); K64.1 Second degree hemorrhoids
CPT/HCPCS: 45378; J2704

== ENCOUNTER → 2023-07-12 13:32 | Outpatient (CLI) | payer BC, SELFPAY ==
[2023-07-12 14:15] LABS: Add Manual Diff / Slide Review NO; Basophils Absolute Auto 0 /uL (0-100); Basophils Percent Auto 0.3 % (0-2); Eosinophils Absolute Auto 0 /uL (0-450); Eosinophils Percent Auto 0.2 % (2-4); Hematocrit 44.1 % (41-53); Hemoglobin 15.7 g/dL (13.5-17.5); Lymphocytes Absolute Auto 2000 /uL (1100-4500); Lymphocytes Percent Auto 19.9 % (25-40); Mean Corpuscular HGB Conc 35.7 % (30-36); Mean Corpuscular Volume 89.7 fL (80-100); Monocytes Absolute Auto 500 /uL (0-900); Monocytes Percent Auto 4.9 % (3-14); Neutrophils Absolute Auto 7300 /uL (1500-7000); Neutrophils Percent Auto 74.7 % (50-75); Platelet Count 351 X10^3/uL (150-400); Red Blood Cell Count 4.91 X10^6/uL (4.5-5.9); Red Cell Distribution Width 12.5 % (11.6-14.8); White Blood Cell Count 9.8 X10^3/uL (4.5-11.0)
[2023-07-12 14:28] LABS: Alanine Aminotransferase 54 IU/L (<50); Albumin 4.7 g/dL (3.5-5.0); Albumin Globulin Ratio 1.5 (1.0-2.8); Alkaline Phosphatase 68 U/L (38-126); Aspartate Aminotransferase 35 IU/L (17-59); BUN Creatinine Ratio 14.8 (6-22); Blood Urea Nitrogen 16 mg/dL (9-20); Carbon Dioxide 24 mmol/L (22-32); Chloride 107 mmol/L (98-107); Cholesterol 171 mg/dL (140-199); Estimated Glomerular Filt Rate > 60 mL/min (>60); Globulin 3.1 g/dL (1.7-4.1); Glucose 118 mg/dL (70-100); HDL Cholesterol 40 mg/dL (40-60); HEMOLYSIS 18 (0-50); LDL Cholesterol Calculated 90 mg/dL (<100); Potassium 4.4 mmol/L (3.4-5.1); Sodium 139 mmol/L (137-145); Total Protein 7.8 g/dL (6.3-8.2); Triglycerides 207 mg/dL (35-150)
[2023-07-12 14:56] LABS: TSH w/ Reflex to FT4 0.87 uIU/mL (0.47-4.68)
[2023-07-12 14:57] LABS: Prostate Specific Antigen Scrn 1.74 ng/mL (0.1-4.0)
== END ==
LOC: LAB 13:34
PROVIDERS: PCP Family Medicine; Referring Provider Family Medicine; Visit Provider Family Medicine
DX: Z00.00 Encounter for general adult medical examination without abnormal findings (principal); Z12.5 Encounter for screening for malignant neoplasm of prostate; R73.9 Hyperglycemia, unspecified; I10 Essential (primary) hypertension; E78.5 Hyperlipidemia, unspecified; R79.89 Other specified abnormal findings of blood chemistry; M70.22 Olecranon bursitis, left elbow
CPT/HCPCS: 36415; 80053; 80061; 82172; 83695; 84443; 85025; G0103

== ENCOUNTER → 2024-08-11 10:54 | Outpatient (CLI) | payer BC, SELFPAY ==
[2024-08-11 12:09] LABS: Add Manual Diff / Slide Review NO; Basophils Absolute Auto 0 /uL (0-100); Basophils Percent Auto 0.4 % (0-2); Eosinophils Absolute Auto 100 /uL (0-450); Hematocrit 46.3 % (41-53); Hemoglobin 16.3 g/dL (13.5-17.5); Lymphocytes Absolute Auto 2500 /uL (1100-4500); Lymphocytes Percent Auto 42.1 % (25-40); Mean Corpuscular HGB Conc 35.2 % (30-36); Mean Corpuscular Hemoglobin 31.9 PG (26-34); Mean Corpuscular Volume 90.7 fL (80-100); Monocytes Absolute Auto 500 /uL (0-900); Monocytes Percent Auto 8.4 % (3-14); Neutrophils Absolute Auto 2800 /uL (1500-7000); Neutrophils Percent Auto 48.1 % (50-75); Platelet Count 296 X10^3/uL (150-400); Red Blood Cell Count 5.11 X10^6/uL (4.5-5.9); Red Cell Distribution Width 12.6 % (11.6-14.8); White Blood Cell Count 5.9 X10^3/uL (4.5-11.0)
[2024-08-11 12:14] LABS: Creatinine Urine Random 149.41 mg/dL
[2024-08-11 12:17] LABS: Alanine Aminotransferase 97 IU/L (<50); Albumin Globulin Ratio 1.6 (1.0-2.8); Alkaline Phosphatase 55 U/L (38-126); Aspartate Aminotransferase 54 IU/L (17-59); BUN Creatinine Ratio 9.5 (6-22); Bilirubin Total 1.2 mg/dL (0.2-1.3); Blood Urea Nitrogen 10 mg/dL (9-20); Calcium 9.5 mg/dL (8.4-10.2); Carbon Dioxide 27 mmol/L (22-32); Chloride 103 mmol/L (98-107); Cholesterol 163 mg/dL (140-199); Estimated Glomerular Filt Rate > 60 mL/min (>60); Globulin 3.1 g/dL (1.7-4.1); Glucose 104 mg/dL (70-99); HDL Cholesterol 47 mg/dL (40-60); HEMOLYSIS < 15 (0-50); LDL Cholesterol Calculated 90 mg/dL (<100); Potassium 4.6 mmol/L (3.4-5.1); Sodium 139 mmol/L (137-145); Total Protein 8.1 g/dL (6.3-8.2); Triglycerides 131 mg/dL (35-150)
[2024-08-11 12:20] LABS: Microalbumin Urine Random 3.5 mg/dL (0-1.6)
[2024-08-11 12:47] LABS: Prostate Specific Antigen Scrn 2.58 ng/mL (0.1-4.0)
[2024-08-11 12:49] LABS: TSH w/ Reflex to FT4 1.23 uIU/mL (0.47-4.68)
== END ==
PROVIDERS: PCP Family Medicine; Referring Provider Family Medicine; Visit Provider Family Medicine
DX: Z12.5 Encounter for screening for malignant neoplasm of prostate (principal); R73.9 Hyperglycemia, unspecified; E78.5 Hyperlipidemia, unspecified; I10 Essential (primary) hypertension; R79.89 Other specified abnormal findings of blood chemistry
CPT/HCPCS: 36415; 80053; 80061; 82043; 82570; 84443; 85025; G0103

== ENCOUNTER → 2024-10-13 11:23 | Outpatient (CLI) | payer BC, SELFPAY ==
--- NOTE | 2024-10-13 11:26 | DI.RAD.S_ITS ---
PROCEDURE: XR WRIST LT MIN 3V INDICATIONS: Left wrist pain TECHNIQUE: 3 views of the wrist were acquired. COMPARISON: None. FINDINGS: Bones: No definite acute fracture. No dislocations. No suspicious bony lesions. Soft tissues: No suspicious soft tissue calcifications. IMPRESSION: Left wrist without acute fracture or dislocation. If there are persistent symptoms or clinical suspicion for pathology, then repeat radiographs or advanced imaging (CT or MRI) may be considered for further evaluation. Dictated by: Ted Mendez M.D. on 10/13/2024 at 21:27 Approved by: Ted Mendez M.D. on 10/13/2024 at 21:28
== END ==
LOC: RAD 11:25
PROVIDERS: PCP Family Medicine; Referring Provider Nurse Practitioner Family; Visit Provider Nurse Practitioner Family
DX: M25.532 Pain in left wrist (principal)
CPT/HCPCS: 73110

== ENCOUNTER → 2024-11-19 12:12 | Outpatient (CLI) | payer BC, SELFPAY ==
[2024-11-19 12:59] LABS: Alanine Aminotransferase 78 IU/L (<50); Albumin 4.8 g/dL (3.5-5.0); Albumin Globulin Ratio 1.7 (1.0-2.8); Alkaline Phosphatase 64 U/L (38-126); Blood Urea Nitrogen 12 mg/dL (9-20); Calcium 9.6 mg/dL (8.4-10.2); Carbon Dioxide 27 mmol/L (22-32); Chloride 102 mmol/L (98-107); Estimated Glomerular Filt Rate > 60 mL/min (>60); Globulin 2.8 g/dL (1.7-4.1); Glucose 99 mg/dL (70-99); HEMOLYSIS < 15 (0-50); Potassium 4.8 mmol/L (3.4-5.1); Sodium 139 mmol/L (137-145); Total Protein 7.6 g/dL (6.3-8.2)
[2024-11-19 13:30] LABS: Prostate Specific Antigen 2.01 ng/mL (0.10-4.00)
== END ==
PROVIDERS: PCP Family Medicine; Referring Provider Family Medicine; Visit Provider Family Medicine
DX: R97.20 Elevated prostate specific antigen [PSA] (principal); R73.9 Hyperglycemia, unspecified; I10 Essential (primary) hypertension; E78.2 Mixed hyperlipidemia; R79.89 Other specified abnormal findings of blood chemistry
CPT/HCPCS: 36415; 80053; 84153